=== PATIENT | male | born 2000 | race Caucasian/White ===

== ENCOUNTER 2021-06-25 20:23 | Emergency (ER) | payer BC ==
[~2021-06-25] VITALS: Ht 180.3 cm; Wt 100.0 kg
[2021-06-25] MEDS ORDERED: IV RINGERS,LACTATED 500ML 1,000 ML IV ONE (20:45)
--- NOTE | 2021-06-25 20:46 | PHYS DOC ---
General Adult EDM: Chief Complaint: HEAT EXPOSURE Problems: (1) Heat exposure HPI: HPI: 21-year-old otherwise healthy male presents to the emergency department complaining of lightheadedness, cramps and heat exposure earlier today. 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 It is approximately 90 degrees with high humidity today. He reports excessive sweating, cramps that are generally getting better. Upon EMS contact he had a blood pressure of 90/60, he was given a bolus of LR and has received about 600 cc so far but notes that he is feeling better and his cramps are subsiding. He denies any further complaints. The patient denies nausea, vomiting, fever, chills, chest pain, shortness of breath, abdominal pain, urinary symptoms, cough, recent trauma, or any other complaints. Review of Systems: Review of Systems: ROS is otherwise negative except what was mentioned in HPI Heart Score: C/O Chest Pain: No Current Medications: Current Medications Medications (Trade) Dose Ordered Sig/Trinity Start Time Stop Time Status Last Admin Dose Admin Ringer's Solution 1,000 ml @ 1,000 mls/hr 1X ONCE 06/25/21 20:45 06/25/21 21:44 UNV Physical Exam: PE: Constitutional: No acute distress, non-toxic appearance. HENT: Atraumatic, bilateral external ears normal, nose normal. Eyes: PERRLA, EOMI, conjunctiva normal, no discharge. Neck: Normal range of motion, supple, no stridor. Cardiovascular: Heart rate regular rhythm. 2+ radial pulses Lungs & Thorax: No respiratory distress, symmetrical expansion. Bilateral breath sounds clear to auscultation Abdomen: Soft, no tenderness Skin: Warm, dry. Extremities: No tenderness, no cyanosis, ROM intact, no edema. Neurologic: Alert and oriented X 3, normal motor function, normal sensory function, no focal deficits noted. Non ataxic gait. GCS 15. Psychologic: Affect normal, judgment normal, mood normal. Current Patient Data: Labs: Laboratory Tests Test 06/25/21 20:45 White Blood Count 11.9 x10^3/uL (4.0-11.0) Red Blood Count 5.27 x10^6/uL (4.30-5.70) Hemoglobin 16.6 g/dL (13.0-17.5) Hematocrit 47.4 % (39.0-53.0) Mean Corpuscular Volume 90 fL (79-100) Mean Corpuscular Hemoglobin 32 pg (25-35) Mean Corpuscular Hemoglobin Concent 35 g/dL (31-37) Red Cell Distribution Width 13.0 % (11.5-14.5) Platelet Count 231 x10^3/uL (140-400) Neutrophils (%) (Auto) 85 % (31-73) Lymphocytes (%) (Auto) 9 % (24-48) Monocytes (%) (Auto) 5 % (0-9) Eosinophils (%) (Auto) 0 % (0-3) Basophils (%) (Auto) 0 % (0-3) Neutrophils # (Auto) 10.1 x10^3/uL (1.8-7.7) Lymphocytes # (Auto) 1.1 x10^3/uL (1.0-4.8) Monocytes # (Auto) 0.6 x10^3/uL (0.0-1.1) Eosinophils # (Auto) 0.0 x10^3/uL (0.0-0.7) Basophils # (Auto) 0.0 x10^3/uL (0.0-0.2) Sodium Level 134 mmol/L (136-145) Potassium Level 3.5 mmol/L (3.5-5.1) Chloride Level 94 mmol/L (98-107) Carbon Dioxide Level 28 mmol/L (21-32) Anion Gap 12 (6-14) Blood Urea Nitrogen 16 mg/dL (8-26) Creatinine 1.8 mg/dL (0.7-1.3) Estimated GFR (Cockcroft-Gault) 47.0 BUN/Creatinine Ratio 9 (6-20) Glucose Level 136 mg/dL (70-99) Calcium Level 11.4 mg/dL (8.5-10.1) Total Bilirubin 1.0 mg/dL (0.2-1.0) Aspartate Amino Transf (AST/SGOT) 24 U/L (15-37) Alanine Aminotransferase (ALT/SGPT) 41 U/L (16-63) Alkaline Phosphatase 128 U/L (46-116) Creatine Kinase 130 U/L (39-308) Total Protein 9.2 g/dL (6.4-8.2) Albumin 5.6 g/dL (3.4-5.0) Albumin/Globulin Ratio 1.6 (1.0-1.7) Vital Signs: Vital Signs Date Time Temp Pulse Resp B/P (MAP) Pulse Ox O2 Delivery O2 Flow Rate FiO2 06/25/21 22:00 76 18 132/76 (94) 99 Room Air 06/25/21 21:30 78 18 134/78 (96) 99 Room Air 06/25/21 21:00 93 18 131/77 (95) 98 Room Air 06/25/21 20:30 94 18 134/76 (95) 96 Room Air Course & Med Decision Making: Course & Med Decision Making Patient feeling much better after interventions, labs appropriate. He is appropriate for discharge Departure Departure Impression: Primary Impression: Heat exhaustion, unspecified, initial encounter Disposition: 01 HOME / SELF CARE / HOMELESS Condition: IMPROVED Patient Instructions: Heat Illness-SportsMed Additional Instructions: You were seen in the emergency department and your health condition was deemed not to require admission to the hospital. It is important to realize that we can only evaluate you during the time that you are in her department. Occasionally health conditions can worsen upon leaving the emergency department. If this were to happen, please return to and allow us the opportunity to reevaluate you. It is a pleasure to take care of your health needs. Return to the ER if your symptoms worsen, do not improve, or if you develop additional symptoms that are concerning to you CAYDEN CHAPPELL DO Jun 25, 2021 20:46
[2021-06-25] MEDS ORDERED: IV RINGERS,LACTATED 1000ML 1,000 ML IV ONE (20:53)
[2021-06-25 20:57] LABS: BASO % 0 % (0-3); EOS % 0 % (0-3); HEMATOCRIT 47.4 % (39.0-53.0); HEMOGLOBIN 16.6 g/dL (13.0-17.5); LYMPH # 1.1 x10^3/uL (1.0-4.8); LYMPH % 9 % (24-48); MEAN CORPUSCULAR HEMOGLOBIN 32 pg (25-35); MEAN CORPUSCULAR HGB CONC 35 g/dL (31-37); MEAN CORPUSCULAR VOLUME 90 fL (79-100); MONO # 0.6 x10^3/uL (0.0-1.1); MONO % 5 % (0-9); NEUT # 10.1 x10^3/uL (1.8-7.7); NEUT % 85 % (31-73); PLATELET COUNT 231 x10^3/uL (140-400); RED BLOOD COUNT 5.27 x10^6/uL (4.30-5.70); WHITE BLOOD COUNT 11.9 x10^3/uL (4.0-11.0)
[2021-06-25 21:02] LABS: CALCIUM 11.4 mg/dL (8.5-10.1); CREATININE 1.8 mg/dL (0.7-1.3); POTASSIUM 3.5 mmol/L (3.5-5.1)
[2021-06-25 21:10] LABS: ALBUMIN 5.6 g/dL (3.4-5.0); ALBUMIN/GLOBULIN RATIO 1.6 (1.0-1.7); TOTAL PROTEIN 9.2 g/dL (6.4-8.2)
[2021-06-25 22:00] VITALS: BP 132/76
== END 2021-06-25 22:36 | disposition home or self-care (01) ==
LOC: ER 20:23
DX: T67.5XXA Heat exhaustion, unspecified, initial encounter (principal); X30.XXXA Exposure to excessive natural heat, initial encounter; Y93.89 Activity, other specified; Y92.89 Other specified places as the place of occurrence of the external cause; Y99.8 Other external cause status
CPT/HCPCS: 36415; 80053; 82550; 85025; 96360; 96361; 99283; J7120